=== PATIENT | female | born 1990 | race Caucasian/White ===

== ENCOUNTER → 2019-11-15 | Outpatient (CLI) | payer OTHER | END | disposition home or self-care (01) | LOC: SONOGRAMA 08:09 → MAMO-SONO 08:15 | PROVIDERS: ATTEND Obstetrics & Gynecology Maternal & Fetal Medicine | DX: N60.11 Diffuse cystic mastopathy of right breast (principal); N63.10 Unspecified lump in the right breast, unspecified quadrant ==

== ENCOUNTER 2022-12-13 12:36 | Outpatient (CLI) | payer OTHER ==
[2022-12-13] MEDS ORDERED: OBSTETRX ONE 38-1-22 PO (12:39)
[2022-12-13] MEDS ORDERED: IRON325 MG PO (12:39)
== END 2022-12-13 17:25 | disposition still patient (30) ==
LOC: OBS/DEL 12:36
PROVIDERS: ATTEND Obstetrics & Gynecology
DX: O26.893 Other specified pregnancy related conditions, third trimester (principal); Z3A.35 35 weeks gestation of pregnancy

== ENCOUNTER 2022-12-13 22:22 | Inpatient (IN) | payer OTHER ==
[~2022-12-13] VITALS: Ht 162.6 cm; Wt 2.3 kg
[~2022-12-13 22:22] MED LIST: IRON325 MG PO; OBSTETRX ONE 38-1-22 PO
[2022-12-17] MEDS ORDERED: PERCOCET 5-3251 EACH PO (10:27)
[2022-12-17] MEDS ORDERED: KETO10TA2 PO (10:28)
== END 2022-12-17 17:17 | disposition home or self-care (01) | DRG 786 ==
LOC: LDR 22:22 → O/R 12-14 10:05 → OB/GYN 12-14 12:20
PROVIDERS: Obstetrics & Gynecology; ADMIT Obstetrics & Gynecology; ATTEND Obstetrics & Gynecology
PROC: 4A1HXCZ Monitoring of Products of Conception, Cardiac Rate, External Approach (ICD-10-PCS; 2022-12-13)
PROC: 10D00Z1 Extraction of Products of Conception, Low, Open Approach (ICD-10-PCS; principal; 2022-12-14 09:30)
DX: O60.14X0 Preterm labor third trimester with preterm delivery third trimester, not applicable or unspecified (principal); O44.13 Complete placenta previa with hemorrhage, third trimester; Z3A.35 35 weeks gestation of pregnancy; Z37.0 Single live birth; Z20.822 Contact with and (suspected) exposure to COVID-19

== ENCOUNTER 2023-12-07 08:37 | Outpatient (CLI) | payer OTHER ==
[~2023-12-07 08:37] MED LIST changes: +KETO10TA2 PO; +PERCOCET 5-3251 EACH PO
== END 2023-12-07 14:20 | disposition home or self-care (01) ==
LOC: SONOGRAMA 08:37
DX: N97.9 Female infertility, unspecified (principal); Z31.41 Encounter for fertility testing

== ENCOUNTER 2024-08-23 12:45 | Inpatient (IN) | payer OTHER ==
[~2024-08-23] VITALS: Ht 162.6 cm; Wt 3.2 kg
[2024-08-23 15:04] LABS: COVID-19 AG NEGATIVE (NEGATIVE)
[2024-08-23 15:17] LABS: INR < 0.93; PARTIAL THROMBOPLASTIN TIME 25.1 SECONDS (22.0-34.0); PROTHROMBIN TIME 10.2 SECONDS (9.0-11.5)
[2024-08-23 16:04] LABS: BILIRUBIN TOTAL 0.38 mg/dL (0.3-1.2); CALCIUM 9.3 mg/dL (8.5-10.1); CREATININE SERUM 0.55 mg/dL (0.55-1.02); GFR 125.78; GLOBULINA 3.8 G/DL (2.4-3.5); POTASSIUM 4.21 mEq/L (3.5-5.1); TOTAL PROTEIN 6.8 gm/dL (6.4-8.2)
[2024-08-28 05:32] VITALS: BP 108/74
[2024-08-28] MEDS ORDERED: CEFAZOLIN SODIUM 1,000 MG VIAL ONE (07:17)
[2024-08-28] MEDS ORDERED: CITRIC ACID/SODIUM CITRATE 30 ML BLIST.PACK PO ONE (07:17)
[2024-08-28] MEDS ORDERED: TRIAMCINOLONE ACETONIDE 40 MG/ML VIAL ONE (08:07)
[2024-08-28] MEDS ORDERED: MORPHINE SULFATE 4 MG/ML CARTRIDGE IV PRN (09:00)
[2024-08-28] MEDS ORDERED: CHLORHEXIDINE GLUCONATE 120 ML BOTTLE TOP ONE ×2 (09:00→12:15)
[2024-08-28] MEDS ORDERED: SIMETHICONE 125 MG CAPSULE PO SCH (09:00)
[2024-08-28] MEDS ORDERED: RINGERS SOLUTION,LACTATED 1,000 ML IV SCH (09:00)
[2024-08-28] MEDS ORDERED: GABAPENTIN 300 MG CAPSULE PO SCH (09:00)
[2024-08-28] MEDS ORDERED: ONDANSETRON HCL 2 MG/ML VIAL IV SCH (09:03)
[2024-08-28] MEDS ORDERED: OXYTOCIN 1,000 ML IV ONE (09:15)
[2024-08-28] MEDS ORDERED: MORPHINE SULFATE 4 MG/ML VIAL IV ONE (09:50)
[2024-08-28] MEDS ORDERED: OXYTOCIN 10 UNITS/ML VIAL ONE (10:28)
[2024-08-28] MEDS ORDERED: KETOROLAC TROMETHAMINE 30 MG VIAL ONE (10:34)
[2024-08-28] MEDS ORDERED: KETOROLAC TROMETHAMINE 30 MG VIAL IV ONE (10:35)
[2024-08-28 11:26] VITALS: BP 129/80
[2024-08-28] MEDS ORDERED: ERYTHROMYCIN BASE OPHT 1GM EACH TUBE OP ONE (12:00)
[2024-08-28] MEDS ORDERED: OXYTOCIN 10 UNIT/ML (10ML) IV ONE (12:00)
[2024-08-28] MEDS ORDERED: TRIAMCINOLONE ACETONIDE 40 MG/ML VIAL IJ ONE (12:00)
[2024-08-28] MEDS ORDERED: ACETAMINOPHEN 500 MG GEL..CAP PO SCH (12:00)
[2024-08-28] MEDS ORDERED: CEFAZOLIN SODIUM 1,000 MG VIAL IV ONE (12:00)
[2024-08-28] MEDS ORDERED: KETOROLAC TROMETHAMINE 30 MG VIAL IV SCH (12:00)
[2024-08-28 16:09] VITALS: BP 119/76
[2024-08-28 20:59] VITALS: BP 118/75
[2024-08-29 02:17] VITALS: BP 100/60
[2024-08-29 06:57] LABS: BASO % 0.2 % (0.1-1.2); EOS # 0.04 (0.04-0.54); EOS % 0.3 % (0.7-7.0); HEMATOCRIT 33.5 % (34.1-44.9); HEMOGLOBIN 11.4 g/dL (11.2-15.7); LYMPH # 1.51 (1.18-3.74); LYMPH % 9.9 % (19.3-53.1); MEAN CORPUSCULAR HEMOGLOBIN 27.3 pg (25.6-32.2); MONO # 0.93 (0.24-0.82); MONO % 6.1 % (4.7-12.5); NEUT # 12.71 (1.56-6.13); NEUT % 82.9 % (34.0-71.1); PLATELET COUNT 165 K/uL (163-369); RED BLOOD COUNT 4.18 M/uL (3.93-5.22); RED CELL DISTRIBUTION WIDTH 13.8 % (11.6-14.4)
[2024-08-29 08:00] VITALS: BP 98/63
[2024-08-29] MEDS ORDERED: OxyCODONE HCL 5 MG TABLET (ROXICODONE) PO PRN (08:00)
[2024-08-29] MEDS ORDERED: KETOROLAC TROMETHAMINE 10 MG TABLET PO SCH (08:00)
[2024-08-29] MEDS ORDERED: DOCUSATE SODIUM 100MG CAP PO SCH (09:00)
[2024-08-29 16:09] VITALS: BP 114/75
[2024-08-29 20:50] VITALS: BP 111/72
[2024-08-30 02:18] VITALS: BP 116/76
[2024-08-30 08:00] VITALS: BP 120/62
== END 2024-08-30 14:47 | disposition home or self-care (01) | DRG 788 ==
LOC: O/R 08-28 05:20 → OB/GYN 08-28 05:20 → LDR 08-28 12:00 → OB/GYN 08-30 14:47
PROVIDERS: ADMIT Obstetrics & Gynecology; ATTEND Obstetrics & Gynecology
PROC: 4A1HXCZ Monitoring of Products of Conception, Cardiac Rate, External Approach (ICD-10-PCS; 2024-08-28)
PROC: 10D00Z1 Extraction of Products of Conception, Low, Open Approach (ICD-10-PCS; principal; 2024-08-28 12:00)
DX: O34.211 Maternal care for low transverse scar from previous cesarean delivery (principal); Z3A.39 39 weeks gestation of pregnancy; Z37.0 Single live birth